=== PATIENT | female | born 1995 | race Hispanic/Latino ===

== ENCOUNTER 2017-11-15 01:58 | Emergency (ER) | payer OTHER ==
[2017-11-15] MEDS ORDERED: Ketorolac Tromethamine 30 MG/ML VIAL ONE (02:45)
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
--- NOTE | 2017-11-15 07:52 | RAD ---
CHEST 1 VIEW: Date: 11/15/17 HISTORY: Chest pain. COMPARISON: None. FINDINGS: Lungs are clear. No pneumothorax or effusion. Cardiac silhouette and mediastinal contours within norm al limits. IMPRESSION: No acute intrathoracic abnormality. POS: [facility]
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
== END 2017-11-15 03:45 | disposition home or self-care (01) ==
LOC: MADERS 01:58
DX: S62.511A Displaced fracture of proximal phalanx of right thumb, initial encounter for closed fracture (principal); S40.211A Abrasion of right shoulder, initial encounter; E03.9 Hypothyroidism, unspecified; F32.9 Major depressive disorder, single episode, unspecified; F17.200 Nicotine dependence, unspecified, uncomplicated; Z79.899 Other long term (current) drug therapy; W22.10XA Striking against or struck by unspecified automobile airbag, initial encounter; V49.50XA Passenger injured in collision with unspecified motor vehicles in traffic accident, initial encounter
CPT/HCPCS: 29125; 70450; 71045; 72125; 96372; G0390; J1885

== ENCOUNTER 2019-05-14 18:31 | Emergency (ER) | payer BC, MEDICAID ==
[~2019-05-14 18:31] MED LIST: Magnesium 2 GM/50 ML BAG (IN WATER) ONE
[2019-05-14] MEDS ORDERED: Sodium Chloride 0.9% 1,000 ML ONE (18:51)
[2019-05-14 19:16] LABS: #Basophils 0.2 thou/uL (0.0-0.2); #Eosinphils 0.2 thou/uL (0.0-0.7); #Lymphocytes 2.4 thou/uL (1.20-3.40); #Monocytes 1.4 thou/uL (0.11-0.59); #Neutrophils 9.5 thou/uL (1.40-6.50); %Basophils 1.2 % (0.0-1.0); %Eosinophils 1.5 % (0.0-10.0); %Lymphocytes 17.8 % (21.0-51.0); %Monocytes 10.3 % (0.0-10.0); %Neutrophils 69.2 % (42.0-75.0); Hemoglobin 8.6 g/dL (12.0-16.0); Hypochromia SLIGHT = 6-15 cells (100X) (0-5/hpf); MDiff Complete? YES; Mean Corpuscular HGB CONC 31.4 g/dL (32.0-36.0); Mean Corpuscular Hemoglobin 23.5 pg (27.0-31.0); Mean Corpuscular Volume 74.8 fL (78.0-98.0); Mean Platelet Volume 9.8 fL (7.4-10.4); Microcytosis SLIGHT = 6-15 cells (100X) (0-5/hpf); Platelet Count 179 thou/uL (130-400); Platelet Morphology Comment Appears Adequate; RBC Distribution Width 14.6 % (11.5-14.5); Red Blood Cell (RBC) Count 3.67 mill/uL (4.20-5.40); White Blood Cell (WBC) Count 13.7 thou/uL (4.8-10.8)
[2019-05-14 19:20] LABS: ALT (SGPT) 7 U/L (8-55); AST (SGOT) 13 U/L (5-34); Albumin 3.3 g/dL (3.5-5.0); Alkaline Phosphatase 99 U/L (40-150); Anion Gap 14 mmol/L (10-20); BUN (Urea Nitrogen) 7 mg/dL (7.0-18.7); Bilirubin, Total 0.3 mg/dL (0.2-1.2); Calc. Creatinine Clearance 0 mL/min (70-130); Calcium 8.2 mg/dL (7.8-10.44); Carbon Dioxide 20 mmol/L (22-29); Chloride 109 mmol/L (98-107); Estimated GFR-MDRD Greater than 90; Globulin 3.2 g/dL (2.4-3.5); Glucose 72 mg/dL (70-105); Potassium 3.7 mmol/L (3.5-5.1); Protein, Total 6.5 g/dL (6.0-8.3); Sodium 139 mmol/L (136-145)
== END 2019-05-14 19:35 | disposition short-term general hospital (02) ==
LOC: MADERS 18:31
DX: O99.89 Other specified diseases and conditions complicating pregnancy, childbirth and the puerperium (principal); M54.5 Low back pain; R10.2 Pelvic and perineal pain; R10.9 Unspecified abdominal pain; O99.343 Other mental disorders complicating pregnancy, third trimester; F32.9 Major depressive disorder, single episode, unspecified; O99.333 Smoking (tobacco) complicating pregnancy, third trimester; Z3A.32 32 weeks gestation of pregnancy; Z79.899 Other long term (current) drug therapy; F17.200 Nicotine dependence, unspecified, uncomplicated
CPT/HCPCS: 80053; 85025; 96365; J3475; J7050

== ENCOUNTER 2021-01-09 15:35 | Emergency (ER) | payer OTHER ==
[2021-01-09] MEDS ORDERED: Boostrix 0.5 ML (Tdap) VIAL ONE (17:40)
== END 2021-01-09 17:48 | disposition home or self-care (01) ==
LOC: MADERS 15:35
DX: S16.1XXA Strain of muscle, fascia and tendon at neck level, initial encounter (principal); S39.012A Strain of muscle, fascia and tendon of lower back, initial encounter; S40.012A Contusion of left shoulder, initial encounter; R51.9 Headache, unspecified; E03.9 Hypothyroidism, unspecified; F17.200 Nicotine dependence, unspecified, uncomplicated; Z79.899 Other long term (current) drug therapy; V43.62XA Car passenger injured in collision with other type car in traffic accident, initial encounter
CPT/HCPCS: 72100; 90471; 90715